=== PATIENT | male | born 1945 | race Caucasian/White ===

== ENCOUNTER 2017-01-12 12:51 | Inpatient (IN) | payer OTHER, MEDICARE ==
[~2017-01-12] VITALS: Ht 176.5 cm; Wt 84.1 kg
[~2017-01-12 12:51] MED LIST: BYSTOLIC5 MG PO; FLEXERIL5 MG; NORCO 10/325 TA1 TA1 PO; PLAVIX75 MG PO; PREDNISONE1 MG
[2017-01-12] MEDS ORDERED: ZESTRIL20 MG PO (14:51)
[2017-01-12] MEDS ORDERED: BAYER CHEWABLE81 MG PO (14:53)
[2017-01-12 15:36] VITALS: Ht 176.5 cm; Wt 84.1 kg
[2017-01-14] MEDS ORDERED: DECADRON4 MG PO (12:46)
[2017-01-14 16:00] VITALS: BP 133/71
== END 2017-01-14 17:57 | disposition home or self-care (01) | DRG 54 ==
LOC: D.M2 12:51 → OBSVTIME 12:52 → D.M2 01-13 09:14
PROVIDERS: ADMIT Family Medicine
PROC: 009U3ZZ Drainage of Spinal Canal, Percutaneous Approach (ICD-10-PCS; principal; 2017-01-14)
DX: C71.9 Malignant neoplasm of brain, unspecified (principal); G93.6 Cerebral edema; F17.203 Nicotine dependence unspecified, with withdrawal; E78.5 Hyperlipidemia, unspecified; I10 Essential (primary) hypertension; D86.89 Sarcoidosis of other sites

== ENCOUNTER 2017-02-02 05:29 | Inpatient (IN) | payer OTHER, MEDICARE ==
[2017-02-01 13:38] LABS: BASOPHILS 0 % (0-2); EOSINOPHILS 0 % (0-7); HEMATOCRIT 44.1 % (42.0-54.0); HEMOGLOBIN 14.9 g/dL (13.5-17.5); IMMATURE GRANULOCYTES 0.3 % (0-5); MCH 31.5 pg (26.0-34.0); MCHC 33.8 g/dL (31.0-37.0); MCV 93.2 fL (80.0-100.0); MEAN PLATELET VOLUME 9.9 fL (7.4-10.4); MONOCYTES 3.1 % (2-11); NEUTROPHILS 89.6 % (40-80); PLATELET COUNT 191 10x3/uL (130-400); RBC 4.73 10x6/uL (4.20-6.10); RDW 12.5 % (11.5-14.5); WBC 9.3 10x3/uL (4.8-10.8)
[2017-02-01 13:47] LABS: APTT 21.4 SECONDS (22.8-39.4); INR 0.86 (0.85-1.17); PROTIME 11.6 SECONDS (11.6-15.0)
[2017-02-02] VITALS (8 sets, daily range): BP systolic 123–160; BP diastolic 67–76; BMI 26.9; BMI 25.8
[~2017-02-02 05:29] MED LIST changes: +BAYER CHEWABLE81 MG PO; +DECADRON4 MG PO; +ZESTRIL20 MG PO
--- NOTE | 2017-02-02 16:00 | NUR ---
CONSULTED ANETHESIA REGARDING DECREASED BLOOD HEART RATE RUNNING 45-50 BPM. REPORTED THIS TO [facility] CRNA. BP 150/68, O2 SAT 99% PATIENT IS ASYMPTOMATIC. NO FURTHER ORDERS GIVEN.
--- NOTE | 2017-02-02 16:30 | NUR ---
ADMIT FROM RR. VSS. ASSESSMENT PER FLOWSHEET. HERE AT BEDSIDE.
--- NOTE | 2017-02-02 18:00 | NUR ---
FAMILY AT THE BEDSIDE. PT NEURO INTACT.
--- NOTE | 2017-02-02 19:30 | NUR ---
REPORT RECEIVED AND CARE ASSUMED. INITIAL SHIFT ASSESSEMENT COMPLETED SEE FLOWSHEET. PT AAOX4 NEUROCHECKS WNL. PT DOES HAVE DEVIATION OF RIGHT EYE WHICH IS NOT A NEW FINDING FOR PT. PT MONITORED PER STANDARD CVICU PROTOCOL WITH ALL ALARMS VERIFIED AND SET. RIGHT FOREARM IV S/L'D AND TUBING DISCONNECTED. LEFT FOREARM IV AT KVO FOR ABT ADMINISTRATION. BOTH ARE WNL AND FLUSHED EASILY. DRESSING TO LEFT ADVENT CDI. SISTER AT BEDSIDE AND CODE WORD ESTABLISHED.
--- NOTE | 2017-02-02 21:00 | NUR ---
DAUGHTER AND SON-IN-LAW HAVE BEEN IN TO VISIT. PT DID RECEIVE MORPHINE EARLIER DOCUMENTED ON JUN WITH RELIEF OF PAIN. IS CURRENTLY RESTING WITH EYES CLOSED AND RESP REG AND NONLABORED. EASILY AWAKEN
--- NOTE | 2017-02-02 23:00 | NUR ---
SHIFT REASSESSMENT COMPLETED SEE FLOWSHEET. NEURO CHECKS WNL. DRESSING TO EVANGELICAL CDI. NO UNEXPECTED FINDINGS. PT DENIES PAIN DENIES NEEDS
[2017-02-03] VITALS (26 sets, daily range): BP systolic 110–145; BP diastolic 59–87
--- NOTE | 2017-02-03 01:00 | NUR ---
PT SLEEPING WELL. EASILY AWAKEN. TURNING INDEPENDENTLY. DRESSING CDI NO VISIBLE DRAINAGE. NEURO STATUS UNCHANGED
--- NOTE | 2017-02-03 03:00 | NUR ---
SHIFT REASSESSMENT COMPLETED SEE FLOWSHEET. NO SIGNIFICANT CHANGE. NEURO STATUS INTACT
--- NOTE | 2017-02-03 04:42 | NUR ---
SPOKE WITH DR. DERAS TO NOTIFY OF CARDIAC RHYTHM CHANGE PT IN CONTROLLED/UNCONTROLLED AFIB. DISCUSSED PT'S HISTORY. TO NOTIFY IF ANY FURTHER CHANGES AND CONSULT DR. ESCOBEDO IN THE MORNING. NO FURTHER ORDERS
--- NOTE | 2017-02-03 07:47 | NUR ---
REPORT RECEIVED. SHIFT ASSESSMENT COMPLETE. PT CURRENTLY IN SINUS RHYTHM. PVC NOTED. HAS HAD BREAKFAST. DENIES NEEDS AT THIS TIME.
--- NOTE | 2017-02-03 10:00 | NUR ---
AT BEDSIDE. DECADRON GIVEN. SHE ASKED HOW OFTEN PT WAS GETTING. ORDERED QID. SAYS DR DERAS HAD CHANGED PT DOSING PRIOR TO ADMIT TO 8MG BID. WANTS TO SEE WHY GETTING QID.
--- NOTE | 2017-02-03 10:27 | NUR ---
Rehab Prescreening Consult recieved and the chart has been reviewed. He is an excellent rehab candidate, but has [facility] insurance which will require a preauthorization. He is POD#1 and has orders for a cardiology consult as well as a PT, OT and ST consult still pending. Discussed with the CM Lluvia Louis RN, once all eval's are completed the information will be submitted to [facility] for their review. Jacqueline Garcia RN Clinical Liaison, rehab
--- NOTE | 2017-02-03 10:40 | NUR ---
DR ESCOBEDO BY TO SEE PATIENT
--- NOTE | 2017-02-03 10:56 | NUR ---
PT UP WALKING WITH PHYSICAL THERAPY AT THIS TIME.
--- NOTE | 2017-02-03 11:26 | NUR ---
PT HAD SEVERAL MINUTE RUN SHOWING A-FIB. CONVERTED BACK TO SR. ASYMPTOMATIC TO PATIENT.
[2017-02-03 12:58] LABS: T4 THYROXINE 8.5 ug/dL (4.7-13.3); THYROID STIMULATING HORMONE 0.55 uIU/mL (0.36-3.74)
--- NOTE | 2017-02-03 14:03 | NUR ---
PT SITTING UP IN CHAIR AT BEDSIDE. DENIES NEEDS. DENIES PAIN. SAYS HE'S SLEEPY.
--- NOTE | 2017-02-03 16:53 | NUR ---
DINNER TRAY PROVIDED. DENIES ANY OTHER NEEDS.
--- NOTE | 2017-02-03 17:50 | NUR ---
ECHO COMPLETE. PT HAS HAD DINNER. DR DERAS HAS BEEN BY TO SEE PATIENT. PLAN TO DISCHARGE TOMORROW IF OK WITH DR ESCOBEDO.
--- NOTE | 2017-02-03 18:42 | NUR ---
ALONZO CATHETER REMOVED. TIP INTACT. PT INSTRUCTED TO NOTIFY NEED TO TOILET.
--- NOTE | 2017-02-03 19:30 | NUR ---
REPORT RECEIVED AND CARE ASSUMED. INITIAL SHIFT ASSESSMENT COMPLETED. PT AAOX4 DENIES PAIN DENIES NEEDS. SURGICAL DRESSING TO LEFT TEMPORAL REGION CDI. CONTINUE TO MONITOR PER STANDARD CVICU PROTOCOL. ALL ALARMS SET AND VERIFIED. PT NOTED TO HAVE DISCHARGE ORDERS ON THE CHART FOR AM. MONITORING CARDIAC STATUS THROUGHOUT THE NIGHT. PT HAS NOT VOIDED SINCE REMOVEAL OF F/C. MONITORING URINARY FUNCTION STATUS. IV TO RIGHT AND LEFT FOREARM FLUSHED WITH NORMAL SALINE. LEFT FOREARM WITH NS RUNNING AT KVO TURNED OFF AND IVF DISCONTINUED.
--- NOTE | 2017-02-03 21:15 | NUR ---
CALL PLACED TO DR. SCOTT TO DISCUSS ORDER FOR BETAPACE. PT HAS BEEN SB IN THE 50'S THIS EVENING DOSE IS 80MG BID. PT'S GENERAL CONDITION DISCUSSED AND NEW ORDERS RECEIVED AND NOTED
--- NOTE | 2017-02-03 21:43 | NUR ---
NOTIFIED OF CHANGES IN MEDS AND UPDATE GIVEN
--- NOTE | 2017-02-03 23:00 | NUR ---
PT HAS BEEN SLEEPING WELL TONIGHT RESP REG AND NONLABORED. HAS VOIDED CLEAR EDMUNDO URINE. DENIES DYSURIA. PT DENIES NEEDS.
--- NOTE | 2017-02-04 01:00 | NUR ---
PT SLEEPING RESP AND NONLABORED NOTE HR REMAINS IN 50'S. WILL CONTINUE TO MONITOR
--- NOTE | 2017-02-04 03:00 | NUR ---
pt has been sleeping well, respirations reg and nonlabored. vss remains bradycardic. easily awaken
--- NOTE | 2017-02-04 05:00 | NUR ---
SLEEPING WITH REG AND NONLABORED RESPIRATIONS
--- NOTE | 2017-02-04 06:30 | NUR ---
PT UP IN CHAIR READY FOR BREAKFAST
[2017-02-04 07:00] VITALS: BP 103/73
--- NOTE | 2017-02-04 08:22 | NUR ---
Is the patient Alert and Oriented? Yes 0 * How many steps to enter\exit or inside your home? 1 0 * PCP DR. STOKES 0 * [facility] [address] [facility] * Preadmission Environment Home with Family 0 * ADLs Independent 0 * Equipment None 0 * List name and contact numbers for known caregivers / representatives who currently or will assist patient after discharge: SPOUSE: FELIX [phone] 0 * Community resources currently utilized None 0 * Additional services required to return to the preadmission environment? No 0 * Can the patient safely return to the preadmission environment? Yes 0 * Has this patient been hospitalized within the prior 30 days at any hospital? Yes PATIENT IS AWAKE AND ALERT SITTING AT BEDSIDE. HE STATES HE LIVES AT HOME WITH HIS , FELIX, AND THAT SHE IS A NURSE. HER PHONE NUMBER IS: [phone]. SHE WILL DRIVE HIM HOME AT DISCHARGE AND ASSIST HIM NEEDED. PATIENT STATES HIS PCP IS DR. STOKES. HE GETS HIS MEDS FROM [facility]. PATIENT DENIES USE OF ANY DME. HE DENIES EVER HAVING HOME HEALTH. PATIENT STATES HE WAS INDEPENDENT IN ALL HIS ADL'S PRIOR TO COMING TO THE HOSPITAL. PATIENT STATES THERE IS ONLY 1 STEP TO ENTER HIS HOME. PATIENT DENIES ANY DISCHARGE NEEDS AT THIS TIME.
--- NOTE | 2017-02-04 09:23 | NUR ---
APPOINTMENT SET UP WITH DR DERAS FOR WednesdayFEBRUARY 11 AT 13:30
[2017-02-04] MEDS ORDERED: BETAPACE 80 MG80 MG PO (09:50)
--- NOTE | 2017-02-04 10:00 | NUR ---
[facility] CALLED FOR SOTALOL 40MG BID FOR 3MONTH SUPPLY. SPOKE WITH KARTHIK
--- NOTE | 2017-02-04 11:06 | NUR ---
IV FROM RIGHT FOREARM AND LEFT FOREARM REMOVED. TIP INTACT IN EACH.
--- NOTE | 2017-02-04 11:25 | NUR ---
DISCHARGE TEACHING PROVIDED TO PATIENT AND . ALL QUESTIONS ANSWERED. WRITTEN PRESCRIPTIONS PROVIDED.
--- NOTE | 2017-02-16 12:03 | OP ---
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 POSTOPERATIVE DIAGNOSIS: Left temporal lobe brain tumor. PROCEDURE: Left temporal craniotomy for subtotal resection of the brain tumor with the [place] navigation. DESCRIPTION AND TECHNIQUE: After induction of general endotracheal anesthesia, the patient was placed in Martin head pins. A registration took place with José Miguel navigation and the fiducial markers patch the scalp. After registration, planning took place through the scalp and skull flaps. After sterile prep and drape, a linear scalp incision was carried out on the left side just above the zygoma. The temporalis muscle was divided with Bovie cautery. A single alberta hole was created over the squamous portion of the left temporal bone squamous. The skull flap was elevated without difficulty after making a cut with a Midas-Mendoza drill using the side cutting alberta. The tumor was well centered within the dural exposure. The dura was opened in a cruciate manner with the bipolar cautery and #11 blade. Following this, the brain surface appeared abnormal, the gyri were flattened and edematous. Sulci were effaced. The shortest distance from the pial surface to the tumor was determined with a [place] navigation. The liliana was cauterized with bipolar cautery. Then, using the [place] navigation, see down the path to the tumor referenced on the MRI scan. Following this, multiple biopsies were sent to pathology for diagnosis, frozen and permanent. Next, under microscopic illumination, the temporal lobe portion of the tumors were removed. There appeared to be a poorly defined plane between the normal brain and tumor. The temporal lobe portions of the tumors removed as gently as possible with a [place] navigation and microscopic illumination. Meticulous hemostasis was maintained throughout the wound. The wound was irrigated with copious amounts of lukewarm saline irrigant solution. It was crystal clear prior to closure. The dura was closed with interrupted 2-0 Nurolon suture. The skull flap was replaced with titanium plates and screws. The temporalis muscle and Nic were reapproximated with 2-0 Vicryl suture. The skin was closed with evie. A sterile dressing was applied to the wound. The patient was awakened in good condition and taken to recovery. All counts were reported as correct. Estimated blood loss was minimal. TRANSINT:[id number] Voice Confirmation ID: [id number] DOCUMENT ID: [id number] HOME DERAS MD at 1203 CC: [id number] DICTATION DATE: 02/11/17 0845 BOARDER HAND: 02/11/17 1021 DIS IN 02/04/17 [place] [id number]
--- NOTE | 2017-02-19 16:56 | EC ---
PATIENT:QUETA VICKERS DATE OF SERVICE: 02/02/17 SEX: M MEDICAL RECORD: [id number] DATE OF : 41 LOCATION:[place] [address] AGE OF PATIENT: 71 ADMISSION DATE: 02/02/17 REFERRING PHYSICIAN: INTERPRETING PHYSICIAN: VINICIUS LANCE MD ECHOCARDIOGRAM REPORT ECHO CHARGES 4 ECHO COMPLETE CLINICAL DIAGNOSIS: A-FIB ECHOCARDIOGRAPHIC MEASUREMENTS (adult normal given) AC root (d.<3.7cm) 3.3 cm LV Septum d (<1.2 cm> 1.3 cm Valve Excursion 1.4 cm LV Septum (systole) 1.9 cm Left Atria (s.<4.0cm> 4.8 cm LVPW d(<1.2cm) 1.4 cm RV (d.<2.3cm) 2.6 cm LVPW (sytole) 1.7 cm LV diastole(<5.6CM) 5.5 cm MV E-F(>70mm/sec) cm LV systole 2.7 cm LVOT Diameter 2.1 cm MV exc.(>10mm) cm Est.ejection fraction (50-75%) % Pericardial Effusion N DOPPLER: LVIT cm/sec A 79.0 cm/sec E 70.0 cm/sec LA cm/sec RVSP 35.0 mmHg LVOT 134 cm/sec AOP1/2T m/s Asc. Ao 191 cm/sec RVOT 59.0 cm/sec RA cm/sec PA 110 cm/sec AV Gradient Peak 15.0 mmHg AV Mean 6.1 mmHg AV Area 2.3 cm MV Gradient Peak 5.4 mmHg MV Mean 1.6 mmHg MV Area cm COMMENTS: Route Returner: Jaja GOMESOE Epic Specialist: 1 Dr. Lance TAPE# PACS DATE OF SERVICE: 02/03/2017 FINDINGS: 1. Left ventricular chamber size is within normal limits. Left ventricular systolic function is normal. Overall ejection fraction estimated at 55%. 2. Left atrium is enlarged at 4.8 cm. Right atrium and right ventricular chamber sizes are within normal limits. 3. Valvular structures have normal structure and motion. 4. Doppler interrogation reveals trace aortic insufficiency; however, moderate mitral regurgitation and mild tricuspid regurgitation. No other valvular ECHOCARDIOGRAM REPORT [id number] QUETA VICKERS insufficiency or stenosis. Pulmonary systolic pressure is normal estimated at 35 mmHg. 5. No evidence of pericardial effusion or left ventricular thrombus. TRANSINT:[id number] Voice Confirmation ID: [id number] DOCUMENT ID: [id number] 02/15/2017 Edited to correct date of service, dmosito. VINICIUS LANCE MD at 1656 CC: [id number] DICTATION DATE: 02/04/17 1247 ELEMENTARY SCHOOL COUNSELOR: 02/04/17 1315 DIS IN 02/04/17 [place] [id number] [place] [address]
--- NOTE | 2017-02-19 16:56 | CN ---
PATIENT NAME:QUETA VICKERS MEDICAL RECORD: [id number] : 43 LOCATION:[place].CV07 ADMIT DATE: 02/02/17 ACCOUNT: [id number] CONSULTING PHYSICIAN: VINICIUS ESCOBEDO MD REFERRING PHYSICIAN: HOME DEARS MD DATE OF CONSULTATION: 02/03/2017 CARDIOLOGY CONSULTATION ADMITTING DIAGNOSES: 1. Atrial fibrillation, new onset, paroxysmal. 2. Hypertension. 3. Status post craniotomy. HISTORY OF PRESENT ILLNESS: This is a gentleman who is in here under neurosurgery care status post craniotomy who was having episodes of atrial fibrillation. He is currently in sinus rhythm. He does not have a history of atrial fibrillation. He only has a history of hypertension. PHYSICAL EXAMINATION: GENERAL APPEARANCE: Well-nourished, well-developed, appears stated age. Level of distress, comfortable. PSYCHIATRIC: Mental status, alert, normal affect. Orientation, oriented to time, place and person. EYES: Lids and conjunctiva, noninjected. No discharge, no pallor. ENT: Lips, teeth, gums, normal dentition. Oropharynx, no cyanosis, no pallor. NECK: Carotid arteries, bilateral normal upstroke, no bruits, no thrills. JUGULAR VEINS: No jugular venous pressure or distention. CERVICAL LYMPH NODES: Nontender, nonenlarged. THYROID: Not enlarged. Nontender. No nodules. LUNGS: Respiratory effort, unlabored. CHEST: Normal curvature. No thoracic deformity. No chest wall tenderness. Percussion, resonant. Auscultation, clear. No wheezes, no rales, no rhonchi. CARDIOVASCULAR: Precordial exam, nondisplaced. No heaves or pericardial thrills. Rate and rhythm, regular. Heart sounds, normal S1, normal S2. No S3, no gallop, no rub. Systolic murmur, not heard. Diastolic murmur, not heard. EXTREMITIES: No cyanosis, no edema. Peripheral pulses, full and equal in all extremities, except as noted. No bruits appreciated. ABDOMEN: Soft, nondistended. Normal aorta. No bruit. Nontender. No masses. Liver, nontender, no hepatomegaly. Spleen, nontender, no splenomegaly. MUSCULOSKELETAL: No joint tenderness. No joint swelling. No erythema. NEUROLOGICAL: Normal gait, normal strength, normal tone. SKIN: Warm and dry. REVIEW OF SYSTEMS: The patient reports easy bruising but reports no swollen glands. The patient reports no fever, no night sweats, no significant weight gain, no significant weight loss. No significant exercise tolerance. The patient reports no dry eyes, no irritation, no vision change. Patient reports no difficulty hearing and no ear pain. Patient reports no frequent nose bleeds or nose and sinus problems. Patient reports on arm pain on exertion. No shortness of breath while lying down. No history of heart murmur. Patient reports no cough, no wheezing or coughing up blood. Patient reports no abdominal pain, no vomiting. Normal appetite. No diarrhea and not vomiting blood. No nausea and no constipation. Patient reports no incontinence. No difficulty urinating. No hematuria. No increased frequency. Patient reports CONSULT REPORT [id number] QUETA VICKERS no muscle aches. No weakness, no arthralgias, no back pain. No swelling of the extremities. Patient reports no abnormal mole, no jaundice, no rashes. Reports no loss of consciousness. No weakness and no numbness. No seizures, dizziness, or headaches. The patient reports no depression, no sleep disturbance, feeling safe in a relationship and no alcohol abuse. Patient reports on fatigue. Reports no runny nose or sinus pressure. No itching, no hives, and no frequent sneezing. IMPRESSION: At this time, we will start him on sotalol 80 mg b.i.d. if he continues to have episodes of atrial fibrillation. We will get an echo, also check T4 and TSH. TRANSINT:[id number] Voice Confirmation ID: [id number] DOCUMENT ID: [id number] VINICIUS ESCOBEDO MD at 1656 CC: [id number] DICTATION DATE: 02/03/17 1047 BREAD SUPERVISOR: 02/03/17 1113 DIS IN 02/04/17 [facility] [address] [place] [address]
--- NOTE | 2017-04-06 13:27 | DS ---
PATIENT:QUETA VICKERS :41 MEDICAL RECORD: [id number] DISCHARGE SUMMARY ADMISSION DATE: 02/02/17 DISCHARGE DATE: 02/04/17 HOSPITAL COURSE: Mr. Vickers was admitted on the day of his craniotomy on 02/02/2017, discharged home on postop day #2. He tolerated the craniotomy well, stayed in the ICU overnight, then was transferred to the floor. He was tolerating regular diet and achieving activities of daily living up on discharge, he had a regular diet with activity no lifting greater than 5 pounds. He is to return to clinic to Dr. Euceda in 10 days. He was prescribed hydrocodone for pain. TRANSINT:[id number] Voice Confirmation ID: [id number] DOCUMENT ID: [id number] HOME EUCEDA MD at 1327 CC: [id number] DICTATION DATE: 03/30/171718 CURB AND GUTTER LABORER: 03/31/17 1058 DIS IN 02/04/17 [place] [id number] [place] [address]
== END 2017-02-04 11:27 | disposition home or self-care (01) | DRG 25 ==
LOC: D.CVICU 05:29 → D.SDCHOLD 05:29 → D.CVICU 13:24
PROVIDERS: Anesthesiology; Internal Medicine Interventional Cardiology; ADMIT Neurological Surgery
PROC: 00B70ZZ Excision of Cerebral Hemisphere, Open Approach (ICD-10-PCS; principal; 2017-02-02 10:15)
DX: C71.2 Malignant neoplasm of temporal lobe (principal); G93.6 Cerebral edema; F17.203 Nicotine dependence unspecified, with withdrawal; I48.91 Unspecified atrial fibrillation; I10 Essential (primary) hypertension; E78.5 Hyperlipidemia, unspecified

== ENCOUNTER → 2017-04-07 07:31 | Outpatient (CLI) | payer OTHER, MEDICARE ==
[2017-02-02 16:49] VITALS: BMI 25.8
[~2017-04-07 07:31] MED LIST changes: +BETAPACE 80 MG80 MG PO
== END | disposition home or self-care (01) ==
LOC: D.MRI 04-05 15:30
DX: C71.2 Malignant neoplasm of temporal lobe (principal)

== ENCOUNTER → 2017-06-14 08:55 | Outpatient (CLI) | payer OTHER, MEDICARE ==
[2017-02-02 16:49] VITALS: BMI 25.8
== END | disposition home or self-care (01) ==
LOC: D.MRI 08:55
DX: D49.6 Neoplasm of unspecified behavior of brain (principal)